=== PATIENT | male | born 2000 ===

== ENCOUNTER 2024-08-11 08:51 | Outpatient (CLI) | payer OTHER ==
--- NOTE | 2024-08-11 20:45 | [facility] CONSULT REPORT ---
[facility] Procedure Note [facility] Procedure Note Consult [place] Note # Demographics Type of EEG Read: - Routine EEG - video Patient Location: Outpatient First Name: Óscar Last Name: Ramiro Date of : 2000 Age: 24 Gender: Male Facility: [facility] Time of Initial Page ([facility] ): 08/11/2024 12:20 Time of Return Call ([facility] Time): 08/11/2024 12:21 # EEG Interpretation Start Time of EEG Read (): 08/11/2024 09:05 Stop Time of EEG Read ([facility] ): 08/11/2024 09:27 Duration: 0h 22m Technical Details: - The EEG electrodes were placed using the standard International 10-20 system of electrode placement. Video and an accessory EKG lead were used during the course of this study. - This study was recorded using the Visual[employer] EEG software Indication: - altered mental status Possible seizure # Description Photic Stimulation: NOT Performed Hyperventilation: NOT performed Phases Captured: - awake Symmetry: symmetric Posterior Dominant Rhythm: The record is continuous, of normal amplitude and bilaterally symmetrical. There was 10-11 Hz posterior dominant rhythm captured. There is a moderate amount of diffuse low amplitude 15-25 Hz beta activity and moderate amount of 4-7 Hz theta activity. Occasional <4 Hz delta activity is present. With drowsiness, there is attenuation of the background alpha activity and a shift to slower frequencies. Amplitude: normal Reactivity: yes Variability: yes Continuity: continuous EKG: artifactual # Abnormalities Epileptiform Abnormalities: - NOT present Focal Slowing: no Seizure: - NOT present No push button events # Impression Impression: normal # Clinical Correlation Clinical Correlation: A normal EEG does not exclude nor support the diagnosis of epilepsy. Additional Comments: Clinical correlation is recommended. # Demographics First Name: Óscar Last Name: Ramiro Facility: [facility] HEMANT CADENA MD Aug 11, 2024 20:45
== END 2024-08-11 23:59 | disposition home or self-care (01) ==
LOC: RAD 08:51
PROVIDERS: ATTEND Nurse Practitioner Family
DX: R56.9 Unspecified convulsions (principal)
CPT/HCPCS: 95816